=== PATIENT | female | born 1955 | race Caucasian/White ===

== ENCOUNTER 2020-02-20 05:27 | Day surgery (SDC) | payer MEDICARE ==
[2020-02-20] MEDS ORDERED: PROPARACAINE 0.5% OPHTH SOL 15 ML BTTL ONE (08:56)
[2020-02-20] MEDS ORDERED: MOXIFLOXACIN HCL (OPHTH) 1 DROP DROPS ONE (08:56)
[2020-02-20] MEDS ORDERED: TROP1%/CYCLOPEN 1%/PHENYL 2.5% DROPS ONE (08:57)
[2020-02-20] MEDS: PROPARACAINE 0.5% OPHTH SOL 15 ML BTTL RIGHT_EYE ONE (10:21)
[2020-02-20] MEDS ORDERED: MIDAZOLAM INJ 2 MG/2 ML VIAL ONE (10:21)
[2020-02-20] MEDS: MOXIFLOXACIN HCL (OPHTH) 1 DROP DROPS RIGHT_EYE ONE ×2 (10:30→10:43)
[2020-02-20] MEDS: BRIMONIDINE 0.2% OPHTH DROPS RIGHT_EYE ONE ×2 (10:31→10:43)
[2020-02-20] MEDS: DEXAMETHASONE 0.1% OPHTH SOL 1 DROP RIGHT_EYE ONE ×2 (10:31→10:43)
[2020-02-20] MEDS: LIDOCAINE 1% MPF 2 ML VIAL INJ ONE (10:31)
[2020-02-20] MEDS: TOBRAMYCIN SULF 0.3 % OPHT SOL 1 DROP RIGHT_EYE ONE ×2 (10:31→10:43)
== END 2020-02-20 11:20 | disposition home or self-care (01) ==
LOC: AMB 05:27
PROVIDERS: ATTEND Ophthalmology
DX: H25.11 Age-related nuclear cataract, right eye (principal)
CPT/HCPCS: 00142; 66984; J2250

== ENCOUNTER 2020-03-12 05:37 | Day surgery (SDC) | payer MEDICARE ==
[2020-03-12] MEDS ORDERED: TROP1%/CYCLOPEN 1%/PHENYL 2.5% DROPS ONE (08:36)
[2020-03-12] MEDS ORDERED: PROPARACAINE 0.5% OPHTH SOL 15 ML BTTL ONE (08:36)
[2020-03-12] MEDS ORDERED: MOXIFLOXACIN HCL (OPHTH) 1 DROP DROPS ONE (08:36)
[2020-03-12] MEDS ORDERED: PROPARACAINE 0.5% OPHTH SOL 15 ML BTTL LEFT_EYE ONE ×2 (09:22→09:45)
[2020-03-12] MEDS ORDERED: LIDOCAINE 1% 2 ML VIAL INJ ONE ×2 (09:22→09:45)
[2020-03-12] MEDS ORDERED: MOXIFLOXACIN HCL (OPHTH) 1 DROP DROPS LEFT_EYE ONE ×2 (09:23→09:45)
[2020-03-12] MEDS ORDERED: TOBRAMYCIN SULF 0.3 % OPHT SOL 1 DROP LEFT_EYE ONE ×2 (09:23→09:45)
[2020-03-12] MEDS ORDERED: DEXAMETHASONE 0.1% OPHTH SOL 1 DROP LEFT_EYE ONE ×2 (09:23→09:45)
[2020-03-12] MEDS ORDERED: BRIMONIDINE 0.2% OPHTH DROPS LEFT_EYE ONE ×2 (09:24→09:45)
[2020-03-12] MEDS ORDERED: MIDAZOLAM INJ 2 MG/2 ML VIAL ONE (09:48)
== END 2020-03-12 11:03 | disposition home or self-care (01) ==
LOC: AMB 05:37
PROVIDERS: ATTEND Ophthalmology
DX: H25.12 Age-related nuclear cataract, left eye (principal)
CPT/HCPCS: 00142; 66984; J2250

== ENCOUNTER 2020-05-20 07:45 | Emergency (ER) | payer MEDICARE ==
--- NOTE | 2020-05-20 08:39 | RAD ---
EXAM DESCRIPTION: Chest,1 View CLINICAL HISTORY: 65 years Female, back pain COMPARISON: None TECHNIQUE: Single AP chest radiograph. FINDINGS: Clear lungs. No pneumothorax or pleural effusion. Normal cardiomediastinal contour. Normal osseous structures. IMPRESSION: 1. No acute cardiopulmonary process. Electronically signed by: Tao Burks MD 05/20/2020 8:38 AM CDT
[2020-05-20] MEDS ORDERED: POTASSIUM CHLORIDE ELIXIR 20 MEQ/15 ML UD PO ONE ×2 (09:06→10:52)
[2020-05-20 11:31] VITALS: O2SAT 95
--- NOTE | 2020-05-20 11:41 | ED.PDOC ---
History of Present Illness - General Chief Complaint: General Stated Complaint: weakness,shaky,burning in back Time Seen by Provider: 05/20/20 07:48 Source: patient Exam Limitations: no limitations - History of Present Illness Initial Comments: The patient is a 65-year-old female presented emergency room secondary to an episode of upper back pain that lasted less than a minute this morning. She is really unable to describe it other than a burning sensation that was on her general back. The patient did test positive for llyod virus a little more than a week ago. She is already had symptoms at that point for about a week. She is not having difficulty breathing. She is not currently having any symptoms. No chest pain or shortness of breath. No palpitations. On telemetry she does have fairly frequent PVCs about every 8-10 beats. No runs of V. tach however. She is not hypoxic. She is not febrile. No evidence of abdominal pain. She has had some increased reflux issues lately. Timing/Duration: momentarily Severity: moderate Improving Factors: nothing Worsening Factors: nothing Associated Symptoms: other Allergies/Adverse Reactions: Allergies NO KNOWN ALLERGY Allergy (Verified 05/20/20 08:08) Home Medications: Ambulatory Orders Famotidine 20 mg PO DAILY #30 tab 05/20/20 Potassium Chloride [Potassium Chloride ER] 10 meq PO DAILY #20 tab 05/20/20 Review of Systems - Review of Systems Constitutional: States: malaise EENTM: States: no symptoms reported Respiratory: States: no symptoms reported Cardiology: States: no symptoms reported Gastrointestinal/Abdominal: States: no symptoms reported Genitourinary: States: no symptoms reported Musculoskeletal: States: back pain Skin: States: no symptoms reported Neurological: States: no symptoms reported Endocrine: States: no symptoms reported All other Systems: No Change from Baseline Past Medical History (General) - Patient Medical History Hx Stroke: No Hx Congestive Heart Failure: No Hx Diabetes: No Hx MRSA: No - Vaccination History Hx Influenza Vaccination: No Hx Pneumococcal Vaccination: No - Social History Hx Tobacco Use: No Family Medical History - Family History Mother Family History: Unknown Living Status: Unknown Physical Exam - Physical Exam General Appearance: Alert, Anxious, No apparent distress Eye Exam: bilateral normal Ears, Nose, Throat: hearing grossly normal, normal pharynx Neck: full range of motion, supple Respiratory: lungs clear, normal breath sounds, no respiratory distress, no accessory muscle use Cardiovascular/Chest: normal peripheral pulses, regular rate, rhythm, no edema, other - Fairly frequent PVCs on telemetry Peripheral Pulses: radial,right: 2+, radial,left: 2+ Gastrointestinal/Abdominal: non tender - Obese, soft Rectal Exam: deferred Back Exam: normal inspection, no CVA tenderness, no vertebral tenderness Extremity: normal range of motion, non-tender, normal inspection, no pedal edema, normal capillary refill 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, alert, normal mood/affect, oriented x 3, other - She is anxious Skin Exam: normal color Comments: Vital Signs - 24 hr 05/20/20 05/20/20 05/20/20 08:03 08:41 08:42 Temperature 97.5 F L Pulse Rate 85 Pulse Rate [ 90 92 H 78 Right Brachial] Respiratory 20 20 Rate Blood Pressure 153/72 130/75 [Right Arm] O2 Sat by Pulse 96 Oximetry 05/20/20 05/20/20 05/20/20 09:44 10:21 11:30 Temperature Pulse Rate Pulse Rate [ 83 79 78 Right Brachial] Respiratory 20 20 18 Rate Blood Pressure 143/100 141/76 141/67 [Right Arm] O2 Sat by Pulse 96 96 95 Oximetry Progress - Progress Progress: 05/20/20 11:43 The patient is a 65-year-old female presented emergency room secondary to transient back pain this morning. Sources not entirely certain however significant hypokalemia may be contributing to some muscle spasm. The patient received 80 mEq of oral potassium here during her stay. She was monitored on telemetry monitoring and does have some fairly frequent PVCs but no evidence of any V. tach. The patient is going to be started on oral potassium and does need to have another potassium level checked in about a week. I am going to place the patient additionally on Pepcid once daily for the next couple of weeks. The patient does need to do start doing light exercise to help with the deconditioning from her recent coronavirus illness. The respiratory panel here was negative today for coronavirus. There is no hypoxia and no evidence of any respiratory distress. I would encourage moderate sunlight exposure for the next few days. Keep well-hydrated. ER warnings are given. [facility] [id number] - Results/Orders Results/Orders: Laboratory Tests 05/20/20 05/20/20 05/20/20 08:18 08:18 08:18 WBC 3.7 L RBC 5.25 Hgb 16.1 H Hct 44.9 MCV 85.5 MCH 30.7 MCHC 35.9 RDW 12.3 Plt Count 176 MPV 11.0 H Absolute Neuts (auto) 1.70 L Absolute Lymphs (auto) 1.50 Absolute Monos (auto) 0.40 Absolute Eos (auto) 0.00 Absolute Basos (auto) 0.00 Neutrophils % 46.7 Lymphocytes % 40.8 Monocytes % 11.1 H Eosinophils % 0.4 L Basophils % 1.0 PT 10.0 INR 1.01 PTT (SP) 22.6 Fibrinogen D-Dimer, Quantitative 420.0 H Sodium 137 Potassium 2.9 L Chloride 98 L Carbon Dioxide 23 Anion Gap 18.9 H BUN 10 Creatinine 0.56 L BUN/Creatinine Ratio 17.9 Random Glucose 215 H Serum Osmolality 279.3 Calcium 9.0 Magnesium 1.9 Total Bilirubin 1.4 H AST 23 ALT 25 Alkaline Phosphatase 54 Creatine Kinase 46 CK-MB (CK-2) 1.5 CK-MB (CK-2) % Not Reportable Troponin I < 0.02 C-Reactive Protein B-Natriuretic Peptide 23.2 Serum Total Protein 7.1 Albumin 3.8 Globulin 3.3 Albumin/Globulin Ratio 1.2 Amylase 22 L Lipase 28 TSH 0.70 05/20/20 05/20/20 05/20/20 08:18 08:18 11:05 WBC RBC Hgb Hct MCV MCH MCHC RDW Plt Count MPV Absolute Neuts (auto) Absolute Lymphs (auto) Absolute Monos (auto) Absolute Eos (auto) Absolute Basos (auto) Neutrophils % Lymphocytes % Monocytes % Eosinophils % Basophils % PT INR PTT (SP) Fibrinogen 474 H D-Dimer, Quantitative Sodium Potassium Chloride Carbon Dioxide Anion Gap BUN Creatinine BUN/Creatinine Ratio Random Glucose Serum Osmolality Calcium Magnesium Total Bilirubin AST ALT Alkaline Phosphatase Creatine Kinase 50 CK-MB (CK-2) 1.4 CK-MB (CK-2) % Not Reportable Troponin I < 0.02 C-Reactive Protein 2.6 H B-Natriuretic Peptide Serum Total Protein Albumin Globulin Albumin/Globulin Ratio Amylase Lipase TSH EKG shows sinus rhythm at 87 bpm with occasional PVCs. Normal axis. Borderline R wave progression. No definitive ST segment or T wave changes indicative of acute ischemia. Normal QT interval. Chest x-ray shows no acute pathology. Departure - Departure Clinical Impression: Hypokalemia, Frequent PVCs Disposition: Discharge to Home or Self Care Condition: Fair Departure Forms: ED Discharge - Pt. Copy, Patient Portal Self Enrollment Instructions: Hypokalemia Diet: bland diet Activity: increase activity as tolerated Referrals: Chris Cabrera MD [Primary Care Provider] - 1-2 Weeks Prescriptions: Famotidine 20 mg PO DAILY #30 tab Potassium Chloride [Potassium Chloride ER] 10 meq PO DAILY #20 tab Home Medications: Ambulatory Orders Famotidine 20 mg PO DAILY #30 tab 05/20/20 Potassium Chloride [Potassium Chloride ER] 10 meq PO DAILY #20 tab 05/20/20 Additional Instructions: The patient is a 65-year-old female presented emergency room secondary to transient back pain this morning. Sources not entirely certain however significant hypokalemia may be contributing to some muscle spasm. The patient received 80 mEq of oral potassium here during her stay. She was monitored on telemetry monitoring and does have some fairly frequent PVCs but no evidence of any V. tach. The patient is going to be started on oral potassium and does need to have another potassium level checked in about a week. I am going to place the patient additionally on Pepcid once daily for the next couple of weeks. The patient does need to do start doing light exercise to help with the deconditioning from her recent coronavirus illness. The respiratory panel here was negative today for coronavirus. There is no hypoxia and no evidence of any respiratory distress. I would encourage moderate sunlight exposure for the next few days. Keep well-hydrated. ER warnings are given.
[2020-05-20 12:08] VITALS: BP 141/58; TEMP 96.5
== END 2020-05-20 12:07 | disposition home or self-care (01) ==
LOC: ER 07:45
DX: I49.3 Ventricular premature depolarization (principal); E87.6 Hypokalemia; Z86.19 Personal history of other infectious and parasitic diseases